=== PATIENT | male | born 1940 | race Caucasian/White ===

== ENCOUNTER 2017-01-31 21:15 | Outpatient (CLI) | payer MEDICARE, OTHER | END 2017-01-31 21:16 | disposition short-term general hospital (02) | LOC: EMS 21:15 | PROVIDERS: ATTEND Surgery | DX: R07.9 Chest pain, unspecified (principal) | CPT/HCPCS: A0425; A0427 ==

== ENCOUNTER 2017-03-17 16:28 | Outpatient (CLI) | payer MEDICARE, OTHER | END 2017-03-17 16:29 | disposition short-term general hospital (02) | LOC: EMS 16:28 | PROVIDERS: ATTEND Surgery | DX: R07.9 Chest pain, unspecified (principal); R06.02 Shortness of breath; R61 Generalized hyperhidrosis; R55 Syncope and collapse | CPT/HCPCS: A0425; A0427 ==

== ENCOUNTER 2017-06-07 13:52 | Outpatient (CLI) | payer MEDICARE, OTHER | END 2017-06-07 13:53 | disposition short-term general hospital (02) | LOC: EMS 13:52 | PROVIDERS: ATTEND Surgery | DX: R07.9 Chest pain, unspecified (principal) | CPT/HCPCS: A0425; A0427 ==

== ENCOUNTER 2017-10-01 08:17 | Outpatient (CLI) | payer MEDICARE, OTHER | END 2017-10-01 08:18 | disposition short-term general hospital (02) | LOC: EMS 08:17 | PROVIDERS: ATTEND Surgery | DX: R07.9 Chest pain, unspecified (principal); R06.00 Dyspnea, unspecified | CPT/HCPCS: A0425; A0427 ==

== ENCOUNTER 2018-07-07 17:14 | Emergency (ER) | payer MEDICARE, OTHER ==
[2018-07-07] MEDS ORDERED: LORazepam 2 MG/ML VIAL IVP STA (17:34)
[2018-07-07] MEDS ORDERED: PANTOPRAZOLE 40 MG VIAL IVP STA (17:35)
--- NOTE | 2018-07-07 17:48 | ED Physician Documentation ---
PD HPI ABD PAIN - Stated complaint Stated Complaint: CP - Chief complaint Chief Complaint: Abd Pain - History obtained from History obtained from: Patient, EMS - History of Present Illness Timing - onset: How many days ago (3) Timing - duration: Days (3) Timing - details: Gradual onset Pain level max: 7 Pain level now: 6 Quality: Aching, Pain Location: Epigastric Radiation: Chest Improved by: Other (nothing) Worsened by: Other (drinking EtOH and vomiting.) Associated symptoms: Nausea, Vomiting, Diarrhea. No: Fever, Hematemesis, Constipation, Melena, Hematochezia, Dysuria, Hematuria, Dizzy Recently seen: Not recently seen - Additional information Additional information: last etoh was yesterday. normally stops drinking when he starts vomiting. Drinks "5-6 drinks" per day. Review of Systems Ten Systems: 10 systems reviewed and negative Constitutional: denies: Fever, Chills Ears: denies: Ear pain Nose: denies: Rhinorrhea / runny nose, Congestion GI: reports: Vomiting Skin: denies: Rash Musculoskeletal: denies: Neck pain, Back pain Neurologic: denies: Headache PD PAST MEDICAL HISTORY - Past Medical History Past Medical History: Yes Cardiovascular: Hypertension, Coronary artery disease Respiratory: None Endocrine/Autoimmune: HyPOthyroidism GI: GERD : None HEENT: Chronic hearing loss Psych: None Musculoskeletal: None Derm: None - Past Surgical History Past Surgical History: Yes General: Colonoscopy, Other Ortho: Shoulder arthroplasty Cardiovascular: CABG, Other - Present Medications Home Medications: Ambulatory Orders Medication Instructions Recorded Confirmed Metoprolol Tartrate 25 mg PO BID 03/09/13 04/06/16 Nitroglycerin [Nitrostat] 0.4 mg SL 5XD PRN 03/09/13 04/06/16 Atorvastatin Calcium 40 mg PO DAILY 07/07/18 07/07/18 Pantoprazole [Protonix] 40 mg PO BID 07/07/18 07/07/18 - Allergies Allergies/Adverse Reactions: Allergies Allergy/AdvReac Type Severity Reaction Status Date / Time Penicillins Allergy Unknown unknown Verified 07/07/18 17:24 hydrocodone AdvReac Unknown Verified 07/07/18 17:24 oxycodone [Oxycodone] AdvReac Unknown Verified 07/07/18 17:24 - Social History Does the pt smoke?: No Smoking Status: Never smoker Does the pt drink ETOH?: Yes Does the pt have substance abuse?: No - Immunizations Immunizations are current?: Yes - POLST Patient has POLST: No PD ED PE NORMAL - Vitals Vital signs reviewed: Yes - General General: Alert and oriented X 3, No acute distress, Well developed/nourished - HEENT HEENT: PERRL, Moist mucous membranes - Neck Neck: Supple, no meningeal sign - Cardiac Cardiac: RRR, Strong equal pulses - Respiratory Respiratory: No respiratory distress, Clear bilaterally - Abdomen Abdomen: Soft, Non tender, Non distended, Other (Tender palpation epigastric. No peritoneal signs) - Back Back: No spinal TTP - Derm Derm: Warm and dry, No rash - Extremities Extremities: No calf tenderness / cord - Neuro Neuro: Alert and oriented X 3 - Psych Psych: Normal mood, Normal affect Results - Vitals Vitals: Vital Signs - 24 hr 07/07/18 07/07/18 07/07/18 17:22 17:28 18:37 Temperature 36.6 C Heart Rate 107 H 101 H 100 Respiratory 17 18 Rate Blood Pressure 138/98 H 132/87 H O2 Saturation 99 100 07/07/18 20:00 Temperature Heart Rate 96 Respiratory 21 Rate Blood Pressure 143/95 H O2 Saturation 100 Oxygen O2 Source Room air - EKG (time done) 1728 Rate: Rate (enter#) (101), Other (PVC) Rhythm: Sinus tachycardia [place]: Normal Intervals: Normal MO, Wide QRS QRS: LVH Ischemia: Other (no STEMI) - Labs Labs: Laboratory Tests 07/07/18 07/07/18 07/07/18 17:50 17:50 17:50 WBC 11.4 H RBC 3.41 L Hgb 13.3 L Hct 41.1 L MCV 120.8 H MCH 39.1 H MCHC 32.4 RDW 15.1 H Plt Count 242 MPV 6.9 L Neut # (Auto) 9.4 H Lymph # (Auto) 0.5 L [place] # (Auto) 1.4 H Eos # (Auto) 0.0 Baso # (Auto) 0.0 Absolute Nucleated RBC 0.01 Nucleated RBC % 0.0 Manual Slide Review Indicated WBC Morphology NORMAL APPEARANCE Platelet Estimate NORMAL (130-450,000) Platelet Morphology NORMAL APPEARANCE RBC Morph Micro Appear 2+ STOMATOCYTES Sodium 136 Potassium 3.6 Chloride 98 L Carbon Dioxide 13 L Anion Gap 25.0 H BUN 23 H Creatinine 1.0 Estimated GFR (MDRD) 73 L Glucose 164 H Calcium 8.9 Total Bilirubin 1.8 H AST 70 H ALT 22 Alkaline Phosphatase 87 Troponin I 0.76 H* Total Protein 7.6 Albumin 4.2 Globulin 3.4 Albumin/Globulin Ratio 1.2 Lipase 56 H Ethyl Alcohol < 5.0 - Rads (name of study) cxr Radiology: Prelim report reviewed, EMP read contemporaneously, See rad report (No acute cardiopulmonary abnormality demonstrated. ) PD MEDICAL DECISION MAKING - ED course Complexity details: reviewed results, re-evaluated patient, considered differential, d/w patient, d/w family ED course: 78-year-old male with a N STEMI. Troponin elevated at 0.76. Started on a heparin drip. Given aspirin by EMS. No acute findings on chest x-ray. His CABG was performed at [facility] in [place], but they have no beds as of 1829. Therefore will attempt to contact other hospitals for a cardiac bed. 1854 - D/w Dr. Villagomez (cardiology at [facility]) who graciously accepts in transfer. 1939 Dr. Katy Corrigan (hospitalist at [facility]) also accepts in transfer. No recurrent symptoms while in the emergency department. Patient will will be transferred to [facility] for further care. COBRA forms filled out This document was made in part using voice recognition software. While efforts are made to proofread this document, sound alike and grammatical errors may occur. Departure - Departure Disposition: 02 Transfer Acute Care Hosp Clinical Impression: NSTEMI (non-ST elevated myocardial infarction) Condition: Stable
--- NOTE | 2018-07-07 17:59 | XRAY Report ---
Reason: Chest Pain Procedure Date: 07/07/2018 Accession Number: [id number] / [id number] Procedure: XR - Chest 1 View X-Ray CPT Code: 64779 FULL RESULT: EXAM: CHEST RADIOGRAPHY EXAM DATE: 07/07/2018 05:47 PM. CLINICAL HISTORY: Chest pain. COMPARISON: CHEST 1 VIEW 04/04/2017 6:00 PM. TECHNIQUE: 1 view. FINDINGS: Lungs/Pleura: No focal opacities evident. No pleural effusion. No pneumothorax. Mediastinum: Heart and mediastinal contours are notable for aortic calcification. Median sternotomy wires and surgical clips consistent with CABG is seen. Other: Right shoulder arthroplasty changes are seen. IMPRESSION: No acute cardiopulmonary abnormality demonstrated. RADIA
[2018-07-07 18:04] LABS: BASOPHILS % (AUTO) 0.3 %; HGB - HEMOGLOBIN 13.3 g/dL (14.0-18.0); LYMPHOCYTES # (AUTO) 0.5 10^3/uL (1.5-3.5); LYMPHOCYTES % (AUTO) 4.8 %; MEAN CORPUSCULAR HEMOGLOBIN 39.1 pg (27.0-31.0); MEAN CORPUSCULAR HGB CONC 32.4 g/dL (32.0-36.0); MEAN CORPUSCULAR VOLUME 120.8 fL (80.0-94.0); MEAN PLATELET VOLUME 6.9 fL (7.4-11.4); MONOCYTES # (AUTO) 1.4 10^3/uL (0.0-1.0); MONOCYTES % (AUTO) 12.4 %; NEUTROPHILS # (AUTO) 9.4 10^3/uL (1.5-6.6); NEUTROPHILS % (AUTO) 82.5 %; PLT - PLATELET COUNT 242 10^3/uL (130-450); RED BLOOD COUNT 3.41 10^6/uL (4.70-6.10); RED CELL DISTRIBUTION WIDTH 15.1 % (12.0-15.0); WHITE BLOOD COUNT 11.4 x10^3/uL (4.8-10.8)
[2018-07-07 18:16] LABS: PLATELET ESTIMATE, MANUAL NORMAL (130-450,000) (NORMAL); PLATELET MORPHOLOGY NORMAL APPEARANCE (NORMAL)
[2018-07-07 18:23] LABS: ALBUMIN 4.2 g/dL (3.2-5.5); ALBUMIN/GLOBULIN RATIO 1.2 (1.0-2.2); ALKALINE PHOSPHATASE 87 IU/L (42-121); AST ASPARTATE AMINOTRANSFERASE 70 IU/L (10-42); BILIRUBIN,TOTAL 1.8 mg/dL (0.2-1.0); BUN - BLOOD UREA NITROGEN 23 mg/dL (6-20); CALCIUM 8.9 mg/dL (8.5-10.3); CARBON DIOXIDE - CO2 13 mmol/L (21-32); CHLORIDE 98 mmol/L (101-111); GFR - MDRD 73 (>89); GLUCOSE 164 mg/dL (70-100); LIPASE 56 U/L (22-51); SODIUM 136 mmol/L (135-145); TOTAL PROTEIN 7.6 g/dL (6.7-8.2)
[2018-07-07] MEDS ORDERED: HEPARIN 25000UNITS/500ML (D5W) 25,000 UNIT/500 ML BAG IV STA (18:32)
[2018-07-07 18:41] LABS: ALT ALANINE AMINOTRANSFERASE 22 IU/L (10-60)
[2018-07-07] MEDS ORDERED: ACETAMINOPHEN 325 MG TABLET PO STA (20:20)
[2018-07-07 23:42] LABS: GLUCOSE, URINE (UA) NEGATIVE (NEGATIVE); KETONES,URINE (UA) 40 mg/dL (NEGATIVE); LEUKOCYTE ESTERASE, URINE NEGATIVE (NEGATIVE); NITRITE,URINE NEGATIVE (NEGATIVE); OCCULT BLOOD,URINE TRACE-INTA (NEGATIVE); PH,URINE 5.5 PH (5.0-7.5); PROTEIN,URINE 30 mg/dL (NEGATIVE); UROBILINOGEN,URINE 0.2 (NORMAL) E.U./dL (NORMAL)
[2018-07-08] LABS: BILIRUBIN,URINE NEGATIVE (NEGATIVE); CLARITY,URINE CLEAR (CLEAR); ICTOTEST,URINE NEGATIVE
[2018-07-08 00:02] LABS: BACTERIA,URINE Rare /HPF (None Seen); CASTS, URINE 11-25 Hyaline Casts /LPF; RBC,URINE 0-5 /HPF (0-5); SQUAMOUS EPITHELIAL CELL,UR MANY Squamous (<= Few)
[2018-07-08] MEDS ORDERED: MORPHINE 2 MG/ML CARPUJECT IVP STA (00:41)
[2018-07-08] MEDS ORDERED: NITROGLYCERIN SL 0.4 MG TABLET SL STA (00:41)
--- NOTE | 2018-07-08 01:51 | ED Physician Documentation ---
ED Addendum - Addendum Addendum: 07/08/18 01:50 The patient developed another episode of chest pain while in the emergency department. A repeat EKG was performed which did not show any new ischemic changes when compared to the most recent EKG. A repeat troponin was done which has increased from the initial one. The patient was given morphine and nitroglycerin which dissipated his chest pain. It did cause a transient period of hypotension which resolved with time. The [facility] transfer center was updated and they have been able to procure a bed for the patient. The patient will be transported by EMS and has been in stable condition
[2018-07-08 02:39] VITALS: BP 118/77
== END 2018-07-08 02:56 | disposition short-term general hospital (02) ==
LOC: EDUNIT# → ED 17:14
DX: I21.4 Non-ST elevation (NSTEMI) myocardial infarction (principal); I25.10 Atherosclerotic heart disease of native coronary artery without angina pectoris; I10 Essential (primary) hypertension; Z95.1 Presence of aortocoronary bypass graft; I95.9 Hypotension, unspecified; I49.3 Ventricular premature depolarization; R00.0 Tachycardia, unspecified
CPT/HCPCS: 36415; 71045; 80053; 81001; 83690; 84484; 85025; 93005; 96365; 96375; 96376; 99284; 99285; A9270; J2060; 80320; 81003; 87086

== ENCOUNTER 2018-12-08 12:17 | Outpatient (CLI) | payer MEDICARE, OTHER | END 2018-12-08 12:18 | disposition short-term general hospital (02) | LOC: EMS 12:17 | PROVIDERS: ATTEND Surgery | DX: R07.9 Chest pain, unspecified (principal); R06.02 Shortness of breath | CPT/HCPCS: A0425; A0427 ==

== ENCOUNTER 2018-12-26 11:13 | Outpatient (CLI) | payer MEDICARE, OTHER | END 2018-12-26 11:14 | disposition short-term general hospital (02) | LOC: EMS 11:13 | PROVIDERS: ATTEND Surgery | DX: T81.9XXA Unspecified complication of procedure, initial encounter (principal) | CPT/HCPCS: A0425; A0429 ==

== ENCOUNTER 2019-01-05 16:54 | Outpatient (CLI) | payer MEDICARE, OTHER | END 2019-01-05 16:55 | disposition short-term general hospital (02) | LOC: EMS 16:54 | PROVIDERS: ATTEND Surgery | DX: R68.84 Jaw pain (principal); M25.522 Pain in left elbow; R07.9 Chest pain, unspecified | CPT/HCPCS: A0425; A0427 ==

== ENCOUNTER 2019-05-31 18:52 | Outpatient (CLI) | payer MEDICARE, OTHER | END 2019-05-31 23:59 | disposition short-term general hospital (02) | LOC: EMS 18:52 | PROVIDERS: ATTEND Surgery | DX: R50.9 Fever, unspecified (principal); R10.30 Lower abdominal pain, unspecified; R53.1 Weakness | CPT/HCPCS: A0425; A0429 ==

== ENCOUNTER 2019-08-25 09:00 | Outpatient (CLI) | payer MEDICARE, OTHER | END 2019-08-25 09:01 | disposition EMS.NT | LOC: EMS 09:00 | PROVIDERS: ATTEND Surgery | DX: R06.02 Shortness of breath (principal); R50.9 Fever, unspecified ==

== ENCOUNTER 2019-08-25 14:18 | Outpatient (CLI) | payer MEDICARE, OTHER | END 2019-08-25 14:19 | disposition home or self-care (01) | LOC: COV 14:18 | PROVIDERS: ATTEND Family Medicine | DX: R05 Cough (principal); R50.9 Fever, unspecified | CPT/HCPCS: 81599 ==

== ENCOUNTER 2019-08-26 08:29 | Outpatient (CLI) | payer MEDICARE, OTHER | END 2019-08-26 08:30 | disposition short-term general hospital (02) | LOC: EMS 08:29 | PROVIDERS: ATTEND Surgery | DX: R07.9 Chest pain, unspecified (principal); R41.0 Disorientation, unspecified; R05 Cough; R50.9 Fever, unspecified | CPT/HCPCS: A0425; A0427 ==